=== PATIENT | female | born 1960 | race Caucasian/White ===

== ENCOUNTER → 2016-09-28 | Outpatient (CLI) | payer OTHER ==
--- NOTE | 2016-09-28 14:54 | RADIOLOGY REPORT PS360 ---
US RUQ-(ABD LTD)1ORGAN/QUAD/FU COMPARISON: None HISTORY: Elevated liver enzymes TECHNIQUE: Targeted ultrasound right upper quadrant FINDINGS: The liver is normal in size and there is a subtle overall increase in echogenicity suggesting mild fatty infiltration. There are no focal lesions. Pancreas is normal. The gallbladder is normal in size and there is a tiny amount biliary sludge near the neck but I see no gallstones. The common bile duct is normal in caliber. Right kidney measures 10.3 x 3.9 x 5.6 cm and shows a good cortical medullary junction with no hydronephrosis or other abnormality. IMPRESSION: Mild fatty liver, minimal biliary sludge, no gallstones seen
== END ==
LOC: RAD 09:23
DX: R74.8 Abnormal levels of other serum enzymes (principal)

== ENCOUNTER → 2016-10-02 | Outpatient (CLI) | payer OTHER ==
--- NOTE | 2016-10-02 15:31 | RADIOLOGY REPORT PS360 ---
CHEST(2 VIEWS-NOT PORTABLE) HISTORY: HTN, TOB USE ORDERING PHYSICIAN: Jet Sanchez MD PATIENT AGE: 56 years COMPARISON: None available FINDINGS: The cardiomediastinal silhouette and pulmonary vascularity are within normal limits. The lungs are clear without infiltrates, suspicious nodules, or pleural effusions. No acute bony abnormalities. IMPRESSION: Negative chest, no acute finding
--- NOTE | 2016-10-03 06:51 | RADIOLOGY REPORT PS360 ---
PROCEDURE: 2-D M-mode and color Doppler study INDICATIONS FOR THE TEST: Chest pain COPD Heart Murmur Tobacco Smoking+ Palpitations+ Fatigue+ Syncope+ Edema Hypertension+Diabetes Mellitus Rheumatic Fever SOB+VILLASEÑOR Obesity Hyperlipidemia+ Family History HD Additional History PATIENT INFORMATION HEIGHT: 65 WEIGHT: 132 GENDER: Female B/P: 138/75 2-D/M-MODE INTERPRETATION: 2-D MEASUREMENTS OBSERVED VALUES IN CMS Right Ventricular Dimension (RVDd) 2.3 Interventricular Septum (Thickness)(IVsd) 1.2 Left Ventricular Internal Dimensions(LVIDd) 4.3 Left Ventricular Posterior Wall (Thickness)(LVPWd) 0.9 Aortic Root 2.1 Aortic Cusp Separation 2.0 Left Atrial Dimensions (LAD) 3.4 2D 1. Left atrium is normal size, left ventricle is normal size, there is borderline concentric left ventricular hypertrophy, visually estimated ejection fraction 55% with no obvious regional wall motion abnormality. 2. The right atrium and right ventricle are normal size and contractility. 3. The aortic valve is minimally thickened there is no aortic stenosis. 4. The mitral and tricuspid valve is structurally normal. 5. No significant pericardial effusion noted 6. The pulmonic valve is not well visualized. DOPPLER INTERROGATION: Doppler interrogation of the aortic mitral and tricuspid valvular presence of mild mitral and tricuspid regurgitation, tricuspid regurgitant jet velocity insufficient for calculation of the right ventricular systolic pressure, grade 1 diastolic dysfunction seen with tissue Doppler evidence of raised left atrial pressure. CONCLUSION: 1. Normal left ventricular size, preserved left ventricular systolic function, visually estimated ejection fraction 55% with no obvious regional wall motion abnormality, grade 1 diastolic dysfunction seen with Doppler evidence of raised left atrial pressure. 2. Mild mitral and tricuspid regurgitation. 3. No significant pericardial effusion noted.
--- NOTE | 2016-10-05 14:18 | RADIOLOGY REPORT PS360 ---
History and Indications: Hypertension, hyperlipidemia, tobacco use, family history, shortness of breath, syncope and fatigue. Procedure: Patient exercised on Gagnadeep protocol 10 minutes and 32 seconds, resting heart rate was 56 bpm resting blood pressure 164 with 80 with exercise maximum heart rate achieved was 1 65 bpm which is greater than 85% of the maximum predicted heart rate and a blood pressure was 1 [id number] test was started due to shortness of breath patient denied any complained of chest pain patient has good exercise capacity achieved 12.8mets of workload on treadmill, the blood pressure response to exercise was adequate. Electrocardiogram: Resting electrocardiogram showed sinus rhythm nonspecific ST-T changes next with exercise excessive baseline artifact seen there is less than 1.[address] segment depression noted from the baseline EKG. The EKG portion of the exercise Myoview is nondiagnostic due to baseline abnormal EKG. Cardiac stress and resting SPECT images: Cardiac stress and resting SPECT images were obtained technetium 99 Myoview 10.7 at rest 32.1 mCi at stress, gated SPECT further analysis of segmental wall motion and calculation of the ejection fraction was also done. Cardiac stress and resting SPECT images show a mild fixed defect in the apex with normal contractility gated SPECT is likely secondary to soft tissue attenuation, no reversible ischemia seen. Computer derived ejection fraction is 60% with no obvious regional wall motion abnormality, right ventricle is normal size and contractility . Conclusion: 1. The EKG portion of the exercise Myoview is nondiagnostic baseline, tissue has good exercise capacity achieved 12.8mets of workload on treadmill, blood pressure response to exercise was adequate. There was no exercise-induced chest discomfort. 2. No obvious scintigraphic evidence of reversible ischemia seen, computer derived ejection fraction is 60% with no obvious regional wall motion abnormality, right ventricle is normal size and contractility.
== END ==
LOC: RT 10:39 → RAD 12:00
DX: I10 Essential (primary) hypertension (principal); R00.1 Bradycardia, unspecified; E78.5 Hyperlipidemia, unspecified; G47.33 Obstructive sleep apnea (adult) (pediatric); Z72.0 Tobacco use
CPT/HCPCS: A9502